=== PATIENT | female | born 1945 | race Caucasian/White ===

== ENCOUNTER 2021-09-08 15:02 | Inpatient (IN) | payer MEDICARE, OTHER ==
[~2021-09-08] VITALS: Ht 149.9 cm; Wt 77.2 kg
[~2021-09-08 15:02] MED LIST: 8 HOUR PAIN RE650 MG PO; TRAMADOL HCL50 MG PO; ULTRAM50 MG PO
[2021-09-08 16:05] LABS: BASOPHIL 0.2 % (0-2); EOSINOPHIL 0.2 % (0-7); HCT 35.3 % (37.0-47.0); HGB 10.8 g/dl (12.5-16.0); LYMPHOCYTE 6.2 % (15-48); MCH 26.7 pg (25.0-31.0); MCHC 30.6 g/dL (32.0-36.0); MCV 87.2 fL (78.0-100.0); MONOCYTE 6.6 % (0-12); MPV 12.5 fL (6.0-9.5); NEUTROPHIL 86.1 % (41-80); NRBC 0; PLT 197 K/uL (150-400); RBC 4.05 M/uL (4.20-5.40); RDW 13.8 % (11.5-14.0); WBC 18.3 K/uL (4.0-10.5)
[2021-09-08 16:08] LABS: INR 1.03 (0.9-1.2); PROTHROMBIN TIME 12.9 SECONDS (11.8-13.4); PTT 25.8 SECONDS (24.4-34.7)
[2021-09-08 16:20] LABS: ALBUMIN 2.8 g/dL (3.4-5.0); BILIRUBIN - TOTAL 0.2 mg/dL (0.2-1.0); BUN/CREAT RATIO (CALC) 22.4 RATIO; CREATININE 0.76 mg/dL (0.51-0.95); GLOBULIN (CALCULATION) 3.7 g/dL; POTASSIUM 3.8 mmol/L (3.5-5.1); TOTAL PROTEIN 6.5 g/dL (6.4-8.2)
[2021-09-08 16:31] LABS: LACTIC ACID 0.8 mmol/L (0.4-1.9)
[2021-09-08 16:50] LABS: BILIRUBIN NEGATIVE (NEGATIVE); BLOOD TRACE-INTACT Ery/uL (NEGATIVE); CLARITY CLEAR (CLEAR); COLOR YELLOW (YELLOW); GLUCOSE (U) NORMAL (NORMAL); LEUKOCYTES NEGATIVE Leu/uL (NEGATIVE); NITRITE NEGATIVE (NEGATIVE); PROTEIN 1+ mg/dL (NEGATIVE); SPECIFIC GRAVITY 1.015 (1.001-1.030); UROBILINOGEN 0.2 mg/dL (0.2-1.0); pH 6.5 (5.0-9.0)
[2021-09-08 16:54] LABS: INFLUENZA A NAA NEGATIVE (NEGATIVE)
[2021-09-08 16:59] LABS: CORONAVIRUS 2019 SARS-COV-2 POSITIVE (NEGATIVE)
[2021-09-08 17:03] LABS: AMORPHOUS URATES CRYSTALS TRACE; URINARY RBC RARE
[2021-09-08] MEDS ORDERED: ZYRTEC10 MG PO (21:31)
[2021-09-08] MEDS ORDERED: VITAMIN D325 MC1 PO (21:32)
[2021-09-08] MEDS ORDERED: ZETIA10 MG PO (21:33)
[2021-09-08] MEDS ORDERED: DOXYCYCLINE HY100 M2 PO (21:33)
[2021-09-08] MEDS ORDERED: LASIX20 MG PO (21:34)
[2021-09-08] MEDS ORDERED: GUAIFENESIN400 MG PO (21:39)
[2021-09-08] MEDS ORDERED: HCTZ25 MG PO (21:40)
[2021-09-08] MEDS ORDERED: XALATAN2.5 ML EYEBOTH (21:41)
[2021-09-08] MEDS ORDERED: PRINIVIL20 MG PO (21:41)
[2021-09-08] MEDS ORDERED: MAGOX 400400 MG PO (21:44)
[2021-09-08] MEDS ORDERED: TOPROL XL 25MG25 MG PO (21:44)
[2021-09-08] MEDS ORDERED: NOVOLOG MI100 UNIT/3 SC ×2 (21:45)
[2021-09-08] MEDS ORDERED: NYSTATIN 30GM C30 GM TOP (21:46)
[2021-09-08] MEDS ORDERED: PROTONIX 40MG T40 MG PO (21:46)
[2021-09-08] MEDS ORDERED: ZOLOFT100 MG PO (21:47)
[2021-09-08] MEDS ORDERED: ZOCOR40 MG PO (21:47)
[2021-09-08] MEDS ORDERED: CARAFATE1 GM PO (21:48)
[2021-09-08] MEDS ORDERED: SALINE NASAL SP88 M1 INH (21:48)
[2021-09-08] MEDS ORDERED: ULTRAM50 MG PO (21:49)
[2021-09-08] MEDS ORDERED: DESYREL50 MG PO (21:50)
[2021-09-09 06:30] LABS: BUN/CREAT RATIO (CALC) 18.9 RATIO; CREATININE 0.9 mg/dL (0.51-0.95); POTASSIUM 4.1 mmol/L (3.5-5.1)
[2021-09-09 06:36] LABS: BASOPHIL 0.2 % (0-2); EOSINOPHIL 0 % (0-7); HCT 34.6 % (37.0-47.0); HGB 10.6 g/dl (12.5-16.0); LYMPHOCYTE 4.4 % (15-48); MCH 26.6 pg (25.0-31.0); MCHC 30.6 g/dL (32.0-36.0); MCV 86.7 fL (78.0-100.0); MPV 12.6 fL (6.0-9.5); NRBC 0; PLT 175 K/uL (150-400); RBC 3.99 M/uL (4.20-5.40); RDW 13.7 % (11.5-14.0); WBC 10.7 K/uL (4.0-10.5)
[2021-09-09 06:40] LABS: NEUTROPHIL 91.7 % (41-80)
[2021-09-09] MEDS ORDERED: PREDNISONE20 MG PO (12:01)
[2021-09-09] MEDS ORDERED: ELIQUIS5 MG PO (12:02)
[2021-09-09] MEDS ORDERED: PREDNISONE 20MG20 MG PO (13:08)
[2021-09-09 19:51] LABS: CORONAVIRUS 229E NOT DETECTED (NOT DETECT); CORONAVIRUS HKU1 NOT DETECTED (NOT DETECT); CORONAVIRUS NL63 NOT DETECTED (NOT DETECT); CORONAVIRUS OC43 NOT DETECTED (NOT DETECT); HUMAN METAPNEUMO NOT DETECTED (NOT DETECT); INFLUENZA A NOT DETECTED (NOT DETECT); INFLUENZA A 2009 H1N1 NOT DETECTED (NOT DETECT); INFLUENZA A H1 NOT DETECTED (NOT DETECT); INFLUENZA A H3 NOT DETECTED (NOT DETECT); INFLUENZA B NOT DETECTED (NOT DETECT); PARAINFLUENZA 1 NOT DETECTED (NOT DETECT); PARAINFLUENZA 2 NOT DETECTED (NOT DETECT)
[2021-09-09 19:52] LABS: B. PERTUSSIS DNA NOT DETECTED (NOT DETECT); CHLAMYDOPHILA PNEUMON DNA PCR NOT DETECTED (NOT DETECT); CORONAVIRUS 2019 PCR NOT DETECTED (NOT DETECTD); MYCOPLASMA PNEUMONIAE NOT DETECTED (NOT DETECT); PARAINFLUENZA 3 NOT DETETED (NOT DETECT); PARAINFLUENZA 4 NOT DETECTED (NOT DETECT); RESPIRATORY SYNCYTIAL VIRUS NOT DETECTED (NOT DETECT)
[2021-09-13 17:10] LABS: ORGANISM ID Not indicated. (.); SPECIMEN SOURCE Urine (.); STREPTOCOCCUS PNEUMONIAE AG Negative (Negative)
== END 2021-09-09 14:00 | disposition home or self-care (01) | DRG 177 ==
LOC: FER 15:02 → FMS 17:44
PROVIDERS: Emergency Medicine; Nurse Practitioner; ADMIT Internal Medicine
PROC: XW033E5 Introduction of Remdesivir Anti-infective into Peripheral Vein, Percutaneous Approach, New Technology Group 5 (ICD-10-PCS; principal; 2021-09-08)
PROC: 8E0ZXY6 Isolation (ICD-10-PCS; 2021-09-08)
PROC: 3E0333Z Introduction of Anti-inflammatory into Peripheral Vein, Percutaneous Approach (ICD-10-PCS; 2021-09-08)
DX: U07.1 COVID-19 (principal); J12.82 Pneumonia due to coronavirus disease 2019; I26.99 Other pulmonary embolism without acute cor pulmonale; J96.22 Acute and chronic respiratory failure with hypercapnia; I50.22 Chronic systolic (congestive) heart failure; J43.9 Emphysema, unspecified; I11.0 Hypertensive heart disease with heart failure; Z66 Do not resuscitate; E78.5 Hyperlipidemia, unspecified; F17.210 Nicotine dependence, cigarettes, uncomplicated; E11.9 Type 2 diabetes mellitus without complications; E66.9 Obesity, unspecified; R91.1 Solitary pulmonary nodule; F41.9 Anxiety disorder, unspecified; F32.A Depression, unspecified; K21.9 Gastro-esophageal reflux disease without esophagitis; H40.9 Unspecified glaucoma; M19.90 Unspecified osteoarthritis, unspecified site; Z79.899 Other long term (current) drug therapy; Z99.81 Dependence on supplemental oxygen; Z90.49 Acquired absence of other specified parts of digestive tract; Z98.41 Cataract extraction status, right eye; Z98.42 Cataract extraction status, left eye; Z88.0 Allergy status to penicillin; Z88.8 Allergy status to other drugs, medicaments and biological substances; Z68.34 Body mass index [BMI] 34.0-34.9, adult
CPT/HCPCS: 36415; 36600; 71045; 71275; 80048; 80053; 81001; 82803; 83605; 83880; 84145; 85025; 85610; 85730; 86140; 87040; 87088; 87449; 93005; 94010; 94640; 94664; 97166; 97530; C9399; J1100; J1650; J1940; J1956; J7050; Q9967; U0002

== ENCOUNTER 2021-11-14 17:36 | Day surgery (SDCO) | payer MEDICARE, OTHER ==
[~2021-11-14] VITALS: Ht 149.9 cm; Wt 75.2 kg
[~2021-11-14 17:36] MED LIST changes: +CARAFATE1 GM PO; +DESYREL50 MG PO; +DOXYCYCLINE HY100 M2 PO; +DUONEB 2.5-0.5M1 AMP NEB; +ELIQUIS5 MG PO; +GUAIFENESIN400 MG PO; +HCTZ25 MG PO; +LASIX20 MG PO; +LASIX40 MG PO; +MAGOX 400400 MG PO; +NEBULIZER UNIT NEB; +NOVOLOG MI100 UNIT/3 SC; +NYSTATIN 30GM C30 GM TOP; +PREDNISONE 20MG20 MG PO; +PREDNISONE20 MG PO; +PRINIVIL20 MG PO; +PROTONIX 40MG T40 MG PO; +SALINE NASAL SP88 M1 INH; +TOPROL XL 25MG25 MG PO; +VITAMIN D325 MC1 PO; +XALATAN2.5 ML EYEBOTH; +ZETIA10 MG PO; +ZOCOR40 MG PO; +ZOLOFT100 MG PO; +ZPAK PO; +ZYRTEC10 MG PO
[2021-11-14 19:58] LABS: BASOPHIL 0.3 % (0-2); EOSINOPHIL 1.2 % (0-7); HCT 34.4 % (37.0-47.0); HGB 10.3 g/dl (12.5-16.0); LYMPHOCYTE 11.3 % (15-48); MCH 25.2 pg (25.0-31.0); MCHC 29.9 g/dL (32.0-36.0); MCV 84.3 fL (78.0-100.0); MONOCYTE 9.1 % (0-12); MPV 11.6 fL (6.0-9.5); NEUTROPHIL 77.5 % (41-80); NRBC 0; PLT 274 K/uL (150-400); RBC 4.08 M/uL (4.20-5.40); RDW 14.6 % (11.5-14.0); WBC 10.4 K/uL (4.0-10.5)
[2021-11-14 20:18] LABS: ALBUMIN 2.8 g/dL (3.4-5.0); ALKALINE PHOSHATASE 78 U/L (46-116); ALT 20 U/L (14-59); AST 20 U/L (15-37); BILIRUBIN - TOTAL 0.2 mg/dL (0.2-1.0); BUN 22 mg/dL (7-18); BUN/CREAT RATIO (CALC) 20.8 RATIO; CHLORIDE 88 mmol/L (98-107); CO2 (BICARBONATE) >45 mmol/L (21-32); CREATININE 1.06 mg/dL (0.51-0.95); GLOBULIN (CALCULATION) 3.8 g/dL; GLUCOSE 114 mg/dL (74-106); POTASSIUM 3.3 mmol/L (3.5-5.1); TOTAL PROTEIN 6.6 g/dL (6.4-8.2)
[2021-11-14 20:59] LABS: CORONAVIRUS 2019 SARS-COV-2 NEGATIVE (NEGATIVE); INFLUENZA A NAA NEGATIVE (NEGATIVE)
[2021-11-14 22:33] LABS: PHOSPHORUS 2.8 mg/dL (2.6-4.7)
[2021-11-14 22:34] LABS: MAGNESIUM 1.9 mg/dL (1.8-2.4)
[2021-11-15 05:37] LABS: CKMB 1.3 ng/mL (0.0-3.6)
[2021-11-15 05:43] LABS: ALBUMIN 2.6 g/dL (3.4-5.0); ALKALINE PHOSHATASE 71 U/L (46-116); ALT 16 U/L (14-59); AST 20 U/L (15-37); BILIRUBIN - TOTAL 0.3 mg/dL (0.2-1.0); BUN 20 mg/dL (7-18); BUN/CREAT RATIO (CALC) 16.9 RATIO; CHLORIDE 87 mmol/L (98-107); CHOLESTEROL 120 mg/dL (<200); CO2 (BICARBONATE) >45 mmol/L (21-32); CREATININE 1.18 mg/dL (0.51-0.95); GLOBULIN (CALCULATION) 3.8 g/dL; GLUCOSE 142 mg/dL (74-106); HDL 53 mg/dL (40-60); LDL - DIRECT 51 mg/dL (<100); POTASSIUM 3.2 mmol/L (3.5-5.1); TOTAL PROTEIN 6.4 g/dL (6.4-8.2); TRIGLYCERIDES 97 mg/dL (<150)
[2021-11-15 06:01] LABS: BASOPHIL 0.5 % (0-2); EOSINOPHIL 1.8 % (0-7); HGB 10.2 g/dl (12.5-16.0); LYMPHOCYTE 16.4 % (15-48); MCH 25.4 pg (25.0-31.0); MCV 84.8 fL (78.0-100.0); MONOCYTE 9.4 % (0-12); MPV 12.2 fL (6.0-9.5); NEUTROPHIL 71.2 % (41-80); NRBC 0; PLT 261 K/uL (150-400); RBC 4.01 M/uL (4.20-5.40); RDW 14.5 % (11.5-14.0); WBC 8.5 K/uL (4.0-10.5)
--- NOTE | 2021-11-15 11:35 | NUR ---
11/15/21 Ms. Chun lives alone. She has one son and siblings as a support sytem. She has 02 at 2 L, portable tank, and rollator. - PCP = Dr. Castaneda. Ms. Chun is not interested in HH at this time. She was educated to the benefits of HH. Patient said she would reconsider.
[2021-11-15 12:19] LABS: BUN 20 mg/dL (7-18); BUN/CREAT RATIO (CALC) 14.9 RATIO; CHLORIDE 89 mmol/L (98-107); CREATININE 1.34 mg/dL (0.51-0.95); GLUCOSE 150 mg/dL (74-106)
[2021-11-15 12:22] LABS: CO2 (BICARBONATE) > 45 mmol/L (21-32)
--- NOTE | 2021-11-15 18:30 | NUR ---
1600 ROUNDS PT WAS SLURRING SPEECH, BACK OF HEAD WAS DIAPHORHETIC PT HAD TREMORS IN ALL EXTREMITIES. BLOOD GLUCOSE WAS CHECKED AND WAS 16 PT WAS GIVE 1 AMP OF D50% AND DR DE LA TORRE WAS NOTIFIED AND PLACED ORDER FOR THE AMP. PT WAS RECHECKED AFTER 20 MINUTES AND GLUCOSE WAS 155. PT WAS GIVEN DINNER TRAY AND SLIDING SCALE INSULIN WAS HELD. 1700 PT AO STATED THAT SHE WAS AWARE HER GLUCOSE WAS LOW. DRANK A CUP OF COFFE AND ATE SUPPER
[2021-11-16 05:04] LABS: BASOPHIL 0.4 % (0-2); EOSINOPHIL 1.8 % (0-7); HCT 34.9 % (37.0-47.0); HGB 10.3 g/dl (12.5-16.0); LYMPHOCYTE 19.4 % (15-48); MCH 25.6 pg (25.0-31.0); MCHC 29.5 g/dL (32.0-36.0); MCV 86.8 fL (78.0-100.0); MONOCYTE 10.8 % (0-12); MPV 11.9 fL (6.0-9.5); NRBC 0; PLT 320 K/uL (150-400); RBC 4.02 M/uL (4.20-5.40); WBC 9.8 K/uL (4.0-10.5)
[2021-11-16 05:18] LABS: IRON % SATURATION 9.1 %SAT (20-50)
[2021-11-16 07:12] LABS: BUN 22 mg/dL (7-18); BUN/CREAT RATIO (CALC) 11.1 RATIO; CHLORIDE 89 mmol/L (98-107); CO2 (BICARBONATE) >45 mmol/L (21-32); CREATININE 1.99 mg/dL (0.51-0.95); GLUCOSE 106 mg/dL (74-106)
[2021-11-16] MEDS ORDERED: LEVAQUIN750 MG PO (09:23)
[2021-11-16] MEDS ORDERED: FLORANEX TABLE1 EACH PO (09:23)
[2021-11-16] MEDS ORDERED: FEOSOL325 MG PO (09:29)
--- NOTE | 2021-11-16 11:21 | NUR ---
INSTRUCTIONS GIVEN TO BOTH GRANDDAUGHTER AND JPATIENT. PATIENT DECLINED INSTRUCTIONS AND SAID "GET ME THE FUCK OUT OF HERE" EMPHASIZED NEED TO TRACK HOE OPERATOR PRESCRIPTIONS AT [facility]. TRANSPORTED BY WHEELCHAIR TO FRONT DOOR TO GRANDDAUGHTER'S CAR. IV AND MONIOTR DCD.
== END 2021-11-16 11:09 | disposition home or self-care (01) ==
LOC: FER 17:36 → FICU 21:44
PROVIDERS: Family Medicine; Nurse Practitioner; Nurse Practitioner Acute Care; Nurse Practitioner Family; ADMIT Internal Medicine
DX: J96.22 Acute and chronic respiratory failure with hypercapnia (principal); J96.21 Acute and chronic respiratory failure with hypoxia; I13.0 Hypertensive heart and chronic kidney disease with heart failure and stage 1 through stage 4 chronic kidney disease, or unspecified chronic kidney disease; E11.22 Type 2 diabetes mellitus with diabetic chronic kidney disease; N18.30 Chronic kidney disease, stage 3 unspecified; I50.33 Acute on chronic diastolic (congestive) heart failure; J18.9 Pneumonia, unspecified organism; J44.1 Chronic obstructive pulmonary disease with (acute) exacerbation; D50.9 Iron deficiency anemia, unspecified; K21.9 Gastro-esophageal reflux disease without esophagitis; E78.5 Hyperlipidemia, unspecified; M19.90 Unspecified osteoarthritis, unspecified site; F17.210 Nicotine dependence, cigarettes, uncomplicated; E87.6 Hypokalemia; E11.649 Type 2 diabetes mellitus with hypoglycemia without coma; Z66 Do not resuscitate; Z86.16 Personal history of COVID-19; Z86.711 Personal history of pulmonary embolism; Z91.14 Patient's other noncompliance with medication regimen; Z79.01 Long term (current) use of anticoagulants; Z79.4 Long term (current) use of insulin; Z79.899 Other long term (current) drug therapy; Z88.0 Allergy status to penicillin; Z88.8 Allergy status to other drugs, medicaments and biological substances; Z99.81 Dependence on supplemental oxygen; Z20.822 Contact with and (suspected) exposure to COVID-19
CPT/HCPCS: 36415; 71045; 80048; 80053; 80061; 82553; 82607; 82962; 83540; 83550; 83605; 83735; 83880; 84100; 84145; 84484; 85025; 86140; 93005; 94010; 94640; 94667; 94668; 97162; 97166; G0378; J1940; J1956; U0002

== ENCOUNTER 2021-11-24 16:02 | Emergency (ER) | payer MEDICARE, OTHER ==
[~2021-11-24 16:02] MED LIST changes: +FEOSOL325 MG PO; +FLORANEX TABLE1 EACH PO; +LEVAQUIN750 MG PO
== END 2021-11-24 18:00 | disposition home or self-care (01) ==
LOC: FER 16:02
DX: R09.02 Hypoxemia (principal); I50.9 Heart failure, unspecified; E10.9 Type 1 diabetes mellitus without complications; F17.210 Nicotine dependence, cigarettes, uncomplicated; J44.9 Chronic obstructive pulmonary disease, unspecified; Z88.0 Allergy status to penicillin; Z88.8 Allergy status to other drugs, medicaments and biological substances
CPT/HCPCS: 99284

== ENCOUNTER 2021-11-30 10:30 | Emergency (ER) | payer MEDICARE, OTHER ==
[2021-11-30 11:48] LABS: CORONAVIRUS 2019 SARS-COV-2 NEGATIVE (NEGATIVE); INFLUENZA A NAA NEGATIVE (NEGATIVE)
[2021-11-30 12:13] LABS: BILIRUBIN NEGATIVE (NEGATIVE); BLOOD 1+ Ery/uL (NEGATIVE); CLARITY HAZY (CLEAR); COLOR YELLOW (YELLOW); GLUCOSE (U) 3+ mg/dL (NORMAL); LEUKOCYTES NEGATIVE Leu/uL (NEGATIVE); NITRITE NEGATIVE (NEGATIVE); PROTEIN 2+ mg/dL (NEGATIVE); UROBILINOGEN 0.2 mg/dL (0.2-1.0)
[2021-11-30 12:25] LABS: INR 1.5 (0.9-1.2); PROTHROMBIN TIME 17.4 SECONDS (11.8-13.4)
[2021-11-30 12:34] LABS: BASOPHIL 0.1 % (0-2); EOSINOPHIL 0 % (0-7); HCT 37.4 % (37.0-47.0); HGB 11.1 g/dl (12.5-16.0); LYMPHOCYTE 3.4 % (15-48); MCH 25.3 pg (25.0-31.0); MCHC 29.7 g/dL (32.0-36.0); MCV 85.2 fL (78.0-100.0); MONOCYTE 3.4 % (0-12); NEUTROPHIL 92.4 % (41-80); NRBC 0; PLT 336 K/uL (150-400); RBC 4.39 M/uL (4.20-5.40); RDW 14.8 % (11.5-14.0)
[2021-11-30 12:49] LABS: LACTIC ACID 2.2 mmol/L (0.4-1.9)
[2021-11-30 12:54] LABS: ALBUMIN 3.4 g/dL (3.4-5.0); ALKALINE PHOSHATASE 75 U/L (46-116); ALT 36 U/L (14-59); AST 191 U/L (15-37); BILIRUBIN - TOTAL 0.4 mg/dL (0.2-1.0); BUN 47 mg/dL (7-18); BUN/CREAT RATIO (CALC) 39.2 RATIO; CHLORIDE 85 mmol/L (98-107); CO2 (BICARBONATE) 44 mmol/L (21-32); MAGNESIUM 2.5 mg/dL (1.8-2.4); POTASSIUM 3.6 mmol/L (3.5-5.1); TOTAL PROTEIN 7.4 g/dL (6.4-8.2)
[2021-11-30 12:55] LABS: BACTERIA TRACE; SQUAMOUS EPITHELIAL CELLS RARE; TRANSITIONAL EPITHELIAL CELLS RARE; URINARY WBC RARE
[2021-11-30 13:13] LABS: GLUCOSE 575 mg/dL (74-106)
== END 2021-11-30 15:33 | disposition other institution (70) ==
LOC: FER 10:30
PROVIDERS: Emergency Medicine
DX: A41.9 Sepsis, unspecified organism (principal); J44.0 Chronic obstructive pulmonary disease with (acute) lower respiratory infection; J18.9 Pneumonia, unspecified organism; J44.1 Chronic obstructive pulmonary disease with (acute) exacerbation; I48.91 Unspecified atrial fibrillation; E11.65 Type 2 diabetes mellitus with hyperglycemia; I21.4 Non-ST elevation (NSTEMI) myocardial infarction; I50.30 Unspecified diastolic (congestive) heart failure; E11.22 Type 2 diabetes mellitus with diabetic chronic kidney disease; N18.30 Chronic kidney disease, stage 3 unspecified; Z20.822 Contact with and (suspected) exposure to COVID-19; Z86.711 Personal history of pulmonary embolism; Z79.01 Long term (current) use of anticoagulants; Z88.0 Allergy status to penicillin; Z88.8 Allergy status to other drugs, medicaments and biological substances; Z79.899 Other long term (current) drug therapy; Z99.81 Dependence on supplemental oxygen
CPT/HCPCS: 36415; 36600; 71045; 80053; 81001; 82803; 83605; 83735; 83880; 84145; 84484; 85025; 85610; 85730; 87040; 87088; 93005; 94640; J1956; J2930; U0002

== ENCOUNTER 2022-02-12 20:29 | Emergency (ER) | payer MEDICARE, OTHER ==
[2022-02-12 21:15] LABS: BASOPHIL 0.2 % (0-2); EOSINOPHIL 0.1 % (0-7); HCT 34.1 % (37.0-47.0); HGB 10.3 g/dl (12.5-16.0); LYMPHOCYTE 4.7 % (15-48); MCHC 30.2 g/dL (32.0-36.0); MCV 89.3 fL (78.0-100.0); MPV 11.9 fL (6.0-9.5); NRBC 0; PLT 228 K/uL (150-400); RBC 3.82 M/uL (4.20-5.40); RDW 14.5 % (11.5-14.0)
[2022-02-12 21:24] LABS: NEUTROPHIL 90.3 % (41-80)
[2022-02-12 21:28] LABS: INR 1.37 (0.9-1.2); PROTHROMBIN TIME 16.4 SECONDS (11.9-13.9); PTT 27.3 SECONDS (24.9-34.6)
[2022-02-12 21:47] LABS: LACTIC ACID 3.3 mmol/L (0.4-1.9)
[2022-02-12 21:54] LABS: CORONAVIRUS 2019 SARS-COV-2 NEGATIVE (NEGATIVE); INFLUENZA A NAA NEGATIVE (NEGATIVE)
[2022-02-12 21:55] LABS: ALBUMIN 3.2 g/dL (3.4-5.0); BILIRUBIN - TOTAL 0.5 mg/dL (0.2-1.0); BUN/CREAT RATIO (CALC) 20.4 RATIO; CREATININE 0.98 mg/dL (0.51-0.95); GLOBULIN (CALCULATION) 3.5 g/dL; POTASSIUM 3.9 mmol/L (3.5-5.1); TOTAL PROTEIN 6.7 g/dL (6.4-8.2)
[2022-02-12 22:22] LABS: BILIRUBIN NEGATIVE (NEGATIVE); BLOOD 2+ Ery/uL (NEGATIVE); CLARITY CLEAR (CLEAR); COLOR YELLOW (YELLOW); GLUCOSE (U) 3+ mg/dL (NORMAL); PROTEIN 2+ mg/dL (NEGATIVE); UROBILINOGEN 0.2 mg/dL (0.2-1.0)
[2022-02-12 22:23] LABS: LEUKOCYTES TRACE Leu/uL (NEGATIVE); NITRITE NEGATIVE (NEGATIVE)
== END 2022-02-13 02:30 | disposition other institution (70) ==
LOC: FER 20:29
PROVIDERS: Internal Medicine
DX: J44.0 Chronic obstructive pulmonary disease with (acute) lower respiratory infection (principal); J18.9 Pneumonia, unspecified organism; J96.01 Acute respiratory failure with hypoxia; J96.02 Acute respiratory failure with hypercapnia; E11.65 Type 2 diabetes mellitus with hyperglycemia; R77.8 Other specified abnormalities of plasma proteins; I10 Essential (primary) hypertension; Z79.01 Long term (current) use of anticoagulants; Z20.822 Contact with and (suspected) exposure to COVID-19
CPT/HCPCS: 36415; 36600; 71045; 80053; 81001; 82009; 82803; 83605; 83880; 84145; 84484; 85025; 85610; 85730; 87040; 87088; 93005; 96365; 96366; 96368; 96375; 96376; J1100; J2185; J2704; J3010; J3370; J7030; J7050; U0002